=== PATIENT | female | born 1955 | race Caucasian/White ===

== ENCOUNTER → 2024-09-08 14:18 | Outpatient (REF) | payer MEDICARE, SELFPAY ==
[2024-09-08 15:03] LABS: % Basophils 0.5 % (0-2); % Eosinophils 1.9 % (0-6); % Immature Granulocytes 0.3 % (0-0.5); % Lymphocytes 27.5 % (20.5-51.1); % Monocytes 8.3 % (1.7-9.3); % Neutrophils 61.5 % (42.2-75.2); Absolute Eosinophils 0.1 10^3/uL (0-0.7); Absolute Lymphocytes 2.1 10^3/uL (1.2-3.4); Absolute Monocytes 0.6 10^3/uL (0.1-0.6); Absolute Neutrophils 4.6 10^3/uL (1.4-6.5); Hematocrit 41.6 % (37.0-47.0); Mean Corp Hgb Conc. 33.7 g/dL (33.0-37.0); Mean Corpuscular Hgb 30.5 pg (27.0-31.0); Mean Corpuscular Volume 90.6 fL (81.0-99.0); Nucleated Red Blood Cells % 0 %; Platelet Count 262 10^3/uL (130-400); Red Blood Cell Count 4.59 10^6/uL (4.20-5.40); Red Cell Dist. Width 13.2 % (11.5-14.5); White Blood Cell Count 7.5 10^3/uL (4.8-10.8)
[2024-09-08 15:24] LABS: ALT (SGPT) 31 U/L (0-35); AST (SGOT) 27 U/L (14-36); Albumin 4.7 g/dl (3.5-5.0); Alkaline Phosphatase 53 U/L (38-126); Blood Urea Nitrogen 23 mg/dl (7-17); Calcium 9.9 mg/dl (8.4-10.2); Carbon Dioxide 27 mmol/L (22-30); Chloride 104 mmol/L (98-107); Glucose 90 mg/dl (70-99); Potassium 4.6 mmol/L (3.5-5.1); Sodium 143 mmol/L (135-145); Total Bilirubin 0.7 mg/dl (0.2-1.3); Total Protein 7.3 g/dl (6.3-8.2); eGFR > 60.00
== END ==
LOC: REG 14:18
PROVIDERS: ATTENDING PHYSICIAN Nurse Practitioner Family; FAMILY PHYSICIAN Family Medicine
DX: Z87.448 Personal history of other diseases of urinary system (principal); R31.9 Hematuria, unspecified; G45.9 Transient cerebral ischemic attack, unspecified; I10 Essential (primary) hypertension
CPT/HCPCS: 36415; 80053; 85025

== ENCOUNTER 2025-03-23 06:20 | Day surgery (SDC) | payer MEDICARE, SELFPAY ==
[2025-03-03 13:46] LABS: Hematocrit 43.3 % (37.0-47.0); Hemoglobin 14.5 g/dL (12.0-16.0); Mean Corp Hgb Conc. 33.5 g/dL (33.0-37.0); Mean Corpuscular Hgb 30.2 pg (27.0-31.0); Mean Corpuscular Volume 90.2 fL (81.0-99.0); Mean Platelet Volume 10.2 fL (7.4-10.4); Platelet Count 257 10^3/uL (130-400); Red Cell Dist. Width 13.3 % (11.5-14.5); White Blood Cell Count 7.2 10^3/uL (4.8-10.8)
[2025-03-03 14:15] LABS: Glycohemoglobin (HgbA1c) 5.5 % (4.0-5.6)
[2025-03-03 14:28] LABS: ALT (SGPT) 40 U/L (0-35); AST (SGOT) 29 U/L (14-36); Albumin 4.9 g/dl (3.5-5.0); Alkaline Phosphatase 65 U/L (38-126); Blood Urea Nitrogen 17 mg/dl (7-17); Calcium 9.9 mg/dl (8.4-10.2); Carbon Dioxide 28 mmol/L (22-30); Chloride 105 mmol/L (98-107); Glucose 86 mg/dl (70-99); Potassium 4.4 mmol/L (3.5-5.1); Sodium 141 mmol/L (135-145); Total Bilirubin 0.8 mg/dl (0.2-1.3); Total Protein 7.6 g/dl (6.3-8.2); eGFR > 60.00
[2025-03-04 13:58] VITALS: BMI 24.1
--- NOTE | 2025-03-10 10:48 | VNURNOTE ---
Patient is scheduled for an elective L TKA on 03/23 - she is a same day patient with Dr Baker. Spoke with patient prior to surgery. Introduced role of [facility] Liaison. Patient reports that she lives with his in a MULTI story home.
She has a cane and rolling walker.
PCP Dr Gisell Hernández
Discussed [facility] joint protocol and post surgical plans.
Reviewed that she will have VN services initially and will then start outpatient PT.
Patient selects [facility] for home care needs and will go to [facility] for outpatient PT. Scheduled for 03/26 .
Patient is in agreement with plan and states that her spouse will be home with her. Advised to bring RW with her the day of surgery. Referral placed in [facility].
Plan: [facility] per [facility] joint protocol 03/23 then outpt PT on 03/26
[2025-03-23] VITALS (13 sets, daily range): BP systolic 96–150; BP diastolic 62–85; BMI 24.1
[2025-03-23] MEDS: NORMOSOL-R/PLASMALYTE-A 1000 IV (08:05)
[2025-03-23] MEDS: TYLENOL 650 MG PO (08:08)
[2025-03-23] MEDS: CELEBREX 200 MG PO (08:08)
--- NOTE | 2025-03-23 10:22 | W.DS.TRANS ---
DC Summary - A&P Mechanic
-
Discharge Instructions:
Sleep Apnea Risk Low
Discharge Diagnosis/Procedures L TKA 03/23/25
Diet As tolerated
Activity With Walker
Driving Restrictions No driving
Bathing Restrictions OK to Shower
Other Services PT
Instructions:
Stand-Alone Forms: [facility] Total Hip and Knee D/C
Changes to Home Medications: Yes
Discharge Medications:
DC Medications w/original date entered in [place]
Fish Oil 1,400 mg PO QPM 03/03/25
amitriptyline 50 mg tablet 25 - 50 mg PO HS 03/03/25
amlodipine 5 mg tablet 5 mg PO QPM 03/03/25
atorvastatin 40 mg tablet 40 mg PO QPM 03/03/25
calcium carbonate 2,000 mg PO QPM 03/03/25
celecoxib 200 mg capsule 200 mg PO DAILY Anti-inflammatory #14 caps 03/03/25
cholecalciferol (vitamin D3) 50 mcg (2,000 unit) tablet (Vitamin D3) 200 mcg PO DAILY 03/03/25
cyanocobalamin (vitamin B-12) 1,000 mcg tablet (Vitamin B-12) 1,000 mcg PO TUTH 03/03/25
dexamethasone 4 mg tablet 4 mg PO BID inflammation #6 tabs 03/03/25
famotidine 20 mg tablet 20 mg PO HS GI prophylaxis #30 tabs 03/03/25
gabapentin 300 mg capsule 300 mg PO HS sleep/pain #10 caps 03/03/25
levothyroxine 50 mcg tablet 50 mcg PO DAILY 03/03/25
multivitamin with minerals-folic acid 200 mcg chewable tablet (Multivitamin Gummies) 2 tab PO QPM 03/03/25
mupirocin 2 % topical ointment 1 applic topical BID infection prevention #1 tube 03/03/25
ondansetron 4 mg disintegrating tablet 4 mg PO Q6H PRN n/v #20 tabs 03/03/25
oxycodone 5 mg tablet 5 mg PO Q6H PRN 1 tab moderate pain, 2 tabs severe pain #30 tabs 03/03/25
peg 400-propylene glycol (PF) 0.4 %-0.3 % eye drops in a dropperette (Systane (PF)) 1 drp BOTH EYES BID 03/03/25
peg 400-propylene glycol 0.4 %-0.3 % eye gel drops (Systane Gel) 1 drp ophthalmic (eye) QPM 03/03/25
polyvinyl alcohol-povidone (PF) 1.4 %-0.6 % eye drops in a dropperette (Refresh Classic (PF)) 1 drp BOTH EYES PRN PRN Dry Eyes 03/03/25
biotin 5,000 mcg sublingual tablet 5,000 mcg sublingual DAILY 03/10/25
acetaminophen 325 mg tablet (Tylenol) 650 mg (2 x 325 mg) PO QID #1 tab 03/23/25
aspirin 325 mg tablet 325 mg PO DAILY blood clot prevention #1 tab 03/23/25
docusate sodium 100 mg capsule (Colace) 100 mg PO BID stool softner #1 cap 03/23/25
magnesium hydroxide 400 mg/5 mL oral suspension (Milk of Magnesia) 30 ml PO HS PRN constipation #1 mL 03/23/25
sennosides 8.6 mg tablet (Senokot) 17.2 mg (2 x 8.6 mg) PO BID laxative #2 tabs 03/23/25
Home Medication Changes
celecoxib 200 mg capsule 200 mg PO DAILY Anti-inflammatory #14 caps 03/03/25
dexamethasone 4 mg tablet 4 mg PO BID inflammation #6 tabs 03/03/25
famotidine 20 mg tablet 20 mg PO HS GI prophylaxis #30 tabs 03/03/25
gabapentin 300 mg capsule 300 mg PO HS sleep/pain #10 caps 03/03/25
mupirocin 2 % topical ointment 1 applic topical BID infection prevention #1 tube 03/03/25
ondansetron 4 mg disintegrating tablet 4 mg PO Q6H PRN n/v #20 tabs 03/03/25
oxycodone 5 mg tablet 5 mg PO Q6H PRN 1 tab moderate pain, 2 tabs severe pain #30 tabs 03/03/25
acetaminophen 325 mg tablet (Tylenol) 650 mg (2 x 325 mg) PO QID #1 tab 03/23/25
aspirin 325 mg tablet 325 mg PO DAILY blood clot prevention #1 tab 03/23/25
docusate sodium 100 mg capsule (Colace) 100 mg PO BID stool softner #1 cap 03/23/25
magnesium hydroxide 400 mg/5 mL oral suspension (Milk of Magnesia) 30 ml PO HS PRN constipation #1 mL 03/23/25
sennosides 8.6 mg tablet (Senokot) 17.2 mg (2 x 8.6 mg) PO BID laxative #2 tabs 03/23/25
Pending Results: No
[2025-03-23] MEDS: ANCEF 5 IV (14:21)
[2025-03-23] MEDS: TYLENOL 1000 MG PO (15:03)
[2025-03-23] MEDS: ROXICODONE 5 MG PO (15:55)
== END 2025-03-23 16:55 | disposition home or self-care (01) ==
LOC: SDS 06:20
PROVIDERS: ATTENDING PHYSICIAN Specialist; FAMILY PHYSICIAN Family Medicine; OTHER PHYSICIAN Physician Assistant Medical
DX: M17.0 Bilateral primary osteoarthritis of knee (principal); M85.80 Other specified disorders of bone density and structure, unspecified site
CPT/HCPCS: 27447; 36415; 73560; 80053; 83036; 85027; 87070; 93005; 97162; C1713; C1776

== ENCOUNTER 2025-09-21 05:43 | Day surgery (SDC) | payer MEDICARE, SELFPAY ==
--- NOTE | 2025-09-02 14:23 | VNURNOTE ---
Patient is scheduled for an elective R TKA on 09/21 -she is a same day patient with Dr Baker. Spoke with patient prior to surgery. Introduced role of [facility] Liaison. Patient reports that she lives with her spouse.
She has a cane and rolling walker.
She had VN services after her prior TKA and was same day surgery.
PCP is Dr Gisell Hernández
Discussed [facility] joint protocol and post surgical plans.
Reviewed that she will have VN services initially and will then start outpatient PT.
Patient selects [facility] for her home care needs and will go to [facility] for outpatient PT. Scheduled for 09/24 .
Patient is in agreement with plan and states that her spouse will be home with her. Advised to bring RW with her day of surgery. [facility] contact number provided. Referral placed in [facility].
Plan: [facility] per [facility] joint protocol 09/21 then outpt PT on 09/24
--- NOTE | 2025-09-02 14:25 | CM ---
Demographics: confirmed
Living situation: [facility]
Support Person Post Operatively:
History of
VN: Hx of [facility], not currently on service
SNF: No
Outpatient: [facility]
Has patient purchased required equipment: yes
PCP: Radha
Pharmacy: [facility]
Post Operative Discharge Plan: [facility] for [facility] knee, plan for transition to outpatient.
[2025-09-04 11:03] LABS: Hematocrit 41.3 % (37.0-47.0); Hemoglobin 13.8 g/dL (12.0-16.0); Mean Corp Hgb Conc. 33.4 g/dL (33.0-37.0); Mean Corpuscular Volume 89.8 fL (81.0-99.0); Platelet Count 299 10^3/uL (130-400); Red Cell Dist. Width 13.9 % (11.5-14.5)
[2025-09-04 11:54] LABS: ALT (SGPT) 28 U/L (0-35); AST (SGOT) 26 U/L (14-36); Albumin 5.0 g/dl (3.5-5.0); Alkaline Phosphatase 62 U/L (38-126); Blood Urea Nitrogen 13 mg/dl (7-17); Calcium 10.0 mg/dl (8.4-10.2); Carbon Dioxide 29 mmol/L (22-30); Chloride 104 mmol/L (98-107); Glucose 94 mg/dl (70-99); Potassium 4.6 mmol/L (3.5-5.1); Sodium 141 mmol/L (135-145); Total Protein 7.9 g/dl (6.3-8.2); eGFR > 60.00
[2025-09-04 12:49] LABS: Glycohemoglobin (HgbA1c) 5.7 % (4.0-5.6)
[2025-09-04 14:05] VITALS: BMI 23.6
[2025-09-07 16:28] VITALS: BMI 23.6
[2025-09-21] VITALS (11 sets, daily range): BP systolic 97–149; BP diastolic 61–86; PULSE 83; O2SAT 95; BMI 23.6
[2025-09-21] MEDS: NORMOSOL-R/PLASMALYTE-A 1000 IV (06:23)
[2025-09-21] MEDS: TYLENOL 650 MG PO (06:23)
[2025-09-21] MEDS: CELEBREX 200 MG PO (06:23)
[2025-09-21] MEDS: BENADRYL 6.25 MG IV (10:50)
[2025-09-21] MEDS: ANCEF 5 IV (11:23)
== END 2025-09-21 11:54 | disposition home health service (06) ==
LOC: SDS 05:43
PROVIDERS: ATTENDING PHYSICIAN Specialist; FAMILY PHYSICIAN Family Medicine; OTHER PHYSICIAN Physician Assistant
DX: M17.11 Unilateral primary osteoarthritis, right knee (principal); M51.369 Other intervertebral disc degeneration, lumbar region without mention of lumbar back pain or lower extremity pain
CPT/HCPCS: 27447; 36415; 73560; 80053; 83036; 85027; 87070; 93005; 97162; C1713; C1776

== ENCOUNTER → 2025-10-29 06:33 | Outpatient (REF) | payer MEDICARE, SELFPAY ==
[2025-10-29 08:23] LABS: Urine Character Clear (Clear)
[2025-10-29 08:26] LABS: Hematocrit 43.1 % (37.0-47.0); Hemoglobin 14.6 g/dL (12.0-16.0); Mean Corp Hgb Conc. 33.9 g/dL (33.0-37.0); Mean Corpuscular Volume 91.1 fL (81.0-99.0); Nucleated Red Blood Cells % 0 %; Platelet Count 320 10^3/uL (130-400); Red Cell Dist. Width 13.2 % (11.5-14.5)
[2025-10-29 08:46] LABS: ALT (SGPT) 24 U/L (0-35); AST (SGOT) 23 U/L (14-36); Albumin 4.7 g/dl (3.5-5.0); Alkaline Phosphatase 74 U/L (38-126); Blood Urea Nitrogen 16 mg/dl (7-17); Calcium 9.6 mg/dl (8.4-10.2); Carbon Dioxide 27 mmol/L (22-30); Chloride 104 mmol/L (98-107); Glucose 89 mg/dl (70-99); HDL Cholesterol 71 mg/dl; LDL Cholesterol, Calculated 83 mg/dl; Potassium 4.3 mmol/L (3.5-5.1); Sodium 139 mmol/L (135-145); Total Protein 7.7 g/dl (6.3-8.2); Very Low Density Lipoprotein 20 mg/dl (0-30); Vitamin D, 25-OH*** 32.9 ng/mL (30-80); eGFR > 60.00
[2025-10-29 09:00] LABS: TSH 3.47 uIU/ml (0.47-4.68)
[2025-10-29 09:08] LABS: Urine Red Blood Cell 0-2 /HPF (0-2)
== END ==
LOC: REG 06:33
PROVIDERS: ATTENDING PHYSICIAN Family Medicine
DX: I10 Essential (primary) hypertension (principal); Z79.899 Other long term (current) drug therapy; G45.9 Transient cerebral ischemic attack, unspecified; Z00.00 Encounter for general adult medical examination without abnormal findings
CPT/HCPCS: 36415; 80053; 80061; 81003; 81015; 82306; 84443; 85025